=== PATIENT | male | born 1950 | race Caucasian/White ===

== ENCOUNTER 2023-08-05 09:52 | Inpatient (IN) | payer OTHER, MEDICAID ==
[~2023-08-05] VITALS: Ht 177.8 cm; Wt 129.1 kg
[2023-08-05 10:16] LABS: EOSINOPHILS % 1.7 % (0.0-5.0); HEMATOCRIT. 44.5 % (42.0-52.0); HEMOGLOBIN. 14.6 g/dL (14.0-18.0); LYMPHOCYTES % 15.4 % (20.0-50.0); MEAN CORPUSCULAR HEMOGLOBIN 31.3 pg (28.0-32.0); MEAN CORPUSCULAR HGB CONC 32.8 g/dL (31.0-37.0); MEAN CORPUSCULAR VOLUME 95.4 fL (80.0-94.0); MEAN PLATELET VOLUME 9.8 fl (7.4-10.4); MONOCYTES % 8.3 % (2.0-8.0); NEUTROPHILS % 73.6 % (40.0-76.0); PLATELET 187 x1000/uL (130-400); RED BLOOD CELL COUNT 4.66 mill/uL (4.7-6.1); RED CELL DISTRIBUTION WIDTH 15.6 % (11.6-14.6); WHITE BLOOD COUNT 4.6 x1000/uL (4.5-11.0)
[2023-08-05 10:36] LABS: CHLORIDE 106 mEq/L (98-107); POTASSIUM 4.1 mEq/L (3.5-5.1); SODIUM 139 mEq/L (136-145)
[2023-08-05 10:47] LABS: ALANINE AMINOTRANSFERASE 28 IU/L (13-61); ALBUMIN 2.9 g/dL (3.4-5.0); ASPARTATE AMINOTRANSFERASE 19 IU/L (15-37); BILIRUBIN TOTAL 0.5 mg/dL (0.1-1.0); CALCIUM 8.4 mg/dL (8.5-10.1); CARBON DIOXIDE 26 mEq/L (21-32); GLUCOSE 190 mg/dL (70-105); NT PRO B-TYPE NATRIURETIC PEP 259 pg/mL (5-125); PROTEIN TOTAL 6.3 g/dL (6.0-8.3); TROPONIN I HIGH SENSITIVITY 24 ng/L (<78); UREA NITROGEN BLOOD 25 mg/dL (7-21)
[2023-08-05] MEDS: LOSARTAN 25 MG TABLET PO SCH (11:15)
[2023-08-05] MEDS ORDERED: ONDANSETRON HCL 4MG/2ML INJ IV PRN (13:30)
[2023-08-05] MEDS ORDERED: DEXTROSE 50% WATER 50ML SYRINGE IV PRN (13:30)
[2023-08-05] MEDS ORDERED: IPRATROPIUM/ALBUTEROL 0.5-3(2.5)MG/3ML NEB HHN PRN (13:30)
[2023-08-05] MEDS ORDERED: ACETAMINOPHEN 325MG TABLET PO PRN (13:30)
[2023-08-05 14:00] LABS: PHOSPHORUS 3.7 mg/dL (2.5-4.9); T4 FREE 1.07 ng/dL (0.76-1.46); THYROID STIMULATING HORMONE 2.2 uIU/mL (0.36-3.74)
[2023-08-05] MEDS ORDERED: TAMSULOSIN HCL 0.4MG SR CAPSULE PO SCH (14:15)
[2023-08-05] MEDS: TAMSULOSIN HCL 0.4MG SR CAPSULE PO SCH (14:45)
[2023-08-05] MEDS ORDERED: MAGNESIUM 1 G PREMIX 100 ML IV NR (15:00)
[2023-08-05] MEDS: BLOOD SUGAR DIAGNOSTIC STRIP TEST SCH ×2 (17:27→21:53)
[2023-08-05 17:52] LABS: CLARITY URINE CLEAR (CLEAR); COLOR URINE YELLOW (YELLOW); GLUCOSE URINE NEGATIVE (NEGATIVE); KETONES URINE NEGATIVE (NEGATIVE); LEUKOCYTE ESTERASE URINE NEGATIVE (NEGATIVE); NITRITE URINE NEGATIVE (NEGATIVE); OCCULT BLOOD URINE NEGATIVE (NEGATIVE); PH URINE 7.5 (4.5-8.0); PROTEIN URINE 3+ (NEGATIVE)
[2023-08-05 17:53] LABS: BACTERIA URINE NONE SEEN; RBC URINE NONE SEEN /hpf (0-2); SQUAMOUS EPITHELIAL CELL URINE NONE SEEN /lpf (RARE/1+); WBC URINE NONE SEEN /hpf (0-2); YEAST URINE NONE SEEN
[2023-08-05] MEDS: INSULIN LISPRO 100 UNITS/ML SUBCUT SCH ×2 (18:20→21:00)
[2023-08-05 21:00] VITALS: BP 188/84; PULSE 71; RESP 16; TEMP 97.8
[2023-08-05] MEDS ORDERED: AMLODIPINE 5MG TABLET PO SCH (21:00)
[2023-08-05 22:00] VITALS: BP 182/83; PULSE 72; RESP 17
[2023-08-05] MEDS ORDERED: BRIN15DR4 (22:47)
[2023-08-05] MEDS ORDERED: BRIM5DRO6 EACHEYE (22:48)
[2023-08-05] MEDS ORDERED: BIMA2.5D4 EACHEYE (22:49)
[2023-08-05] MEDS ORDERED: AMLO1TAB15 PO (22:55)
[2023-08-05] MEDS ORDERED: AMLO1TAB15 MT (22:55)
[2023-08-05] MEDS ORDERED: GLIM4TAB36 MT (22:56)
[2023-08-05 23:00] VITALS: BP 163/79; PULSE 62; RESP 15
[2023-08-05] MEDS ORDERED: PRAV80TA21 MT (23:00)
[2023-08-05] MEDS ORDERED: TAMS-11 MT (23:00)
[2023-08-05] MEDS ORDERED: OXYB5TAB17 PO (23:00)
[2023-08-05] MEDS ORDERED: DEXL60CA3 MT (23:00)
[2023-08-05] MEDS ORDERED: PIOG1TAB23 MT (23:01)
[2023-08-05] MEDS ORDERED: HYDRALAZINE 20MG/ML VIAL ONE (23:19)
[2023-08-05] MEDS: ATORVASTATIN CALCIUM 40MG TABLET PO SCH (23:21)
[2023-08-05] MEDS: HYDRALAZINE 20MG/ML VIAL IV PRN (23:22)
[2023-08-05 23:46] VITALS: BP 163/89; PULSE 71; RESP 17; TEMP 97.8
[2023-08-06] VITALS (46 sets, daily range): BP systolic 114–176; BP diastolic 57–103; PULSE 51–76; RESP 13–21; TEMP 97.9–98.6
[2023-08-06 05:45] LABS: CHLORIDE 106 mEq/L (98-107); INDEX HEMOLYSI 1 (1-3); INDEX ICTERIC 1 (1-4); INDEX LIPEMIC 1 (1-3); POTASSIUM 3.3 mEq/L (3.5-5.1); SODIUM 140 mEq/L (136-145)
[2023-08-06 05:47] LABS: BASOPHILS % 0.8 % (0.0-2.0); EOSINOPHILS % 1.5 % (0.0-5.0); HEMATOCRIT. 43.1 % (42.0-52.0); HEMOGLOBIN. 14.3 g/dL (14.0-18.0); LYMPHOCYTES % 14.4 % (20.0-50.0); MEAN CORPUSCULAR HEMOGLOBIN 31.2 pg (28.0-32.0); MEAN CORPUSCULAR HGB CONC 33.1 g/dL (31.0-37.0); MEAN CORPUSCULAR VOLUME 94.1 fL (80.0-94.0); MEAN PLATELET VOLUME 10.1 fl (7.4-10.4); NEUTROPHILS % 73.3 % (40.0-76.0); PLATELET 177 x1000/uL (130-400); RED BLOOD CELL COUNT 4.58 mill/uL (4.7-6.1); RED CELL DISTRIBUTION WIDTH 15.5 % (11.6-14.6); WHITE BLOOD COUNT 4.7 x1000/uL (4.5-11.0)
[2023-08-06 05:53] LABS: CARBON DIOXIDE 29 mEq/L (21-32); CREATININE 0.8 mg/dL (0.6-1.3); GLUCOSE 134 mg/dL (70-105); UREA NITROGEN BLOOD 17 mg/dL (7-21)
[2023-08-06] MEDS: BLOOD SUGAR DIAGNOSTIC STRIP TEST SCH ×4 (07:50→21:00)
[2023-08-06] MEDS ORDERED: POTASSIUM CHLORIDE INJ 40 MEQ in DEXT 5% WATER 500 ML IV NR (08:00)
[2023-08-06] MEDS: INSULIN LISPRO 100 UNITS/ML SUBCUT SCH ×4 (08:20→20:57)
[2023-08-06] MEDS: TAMSULOSIN HCL 0.4MG SR CAPSULE PO SCH (09:58)
[2023-08-06] MEDS: LOSARTAN 25 MG TABLET PO SCH (09:58)
[2023-08-06] MEDS: PANTOPRAZOLE 40MG DR TABLET PO SCH (09:58)
[2023-08-06] MEDS ORDERED: POTASSIUM CHLORIDE 20MEQ/PACKET PO ONE (10:00)
[2023-08-06] MEDS ORDERED: ENOXAPARIN 30MG/0.3ML SYR SUBCUT SCH (18:00)
[2023-08-06] MEDS: ATORVASTATIN CALCIUM 40MG TABLET PO SCH (20:57)
[2023-08-06] MEDS: HYDRALAZINE 20MG/ML VIAL IV PRN (21:40)
[2023-08-07] VITALS (40 sets, daily range): BP systolic 106–182; BP diastolic 41–102; PULSE 55–94; RESP 13–24; TEMP 97.6–98.1
[2023-08-07] MEDS ORDERED: GENTAMICIN SULF 40MG/ML 2ML VIAL ONE (07:41)
[2023-08-07] MEDS ORDERED: LIDOCAINE HCL 1% 20ML VIAL (Pyxis) INJ ONE ×2 (07:41→10:24)
[2023-08-07] MEDS ORDERED: CEFAZOLIN SODIUM 1000MG/VIAL ONE ×2 (07:42)
[2023-08-07] MEDS ORDERED: IODIXANOL 320MG/ML 100 ML BOTTLE IV ONE ×2 (07:45→10:58)
[2023-08-07] MEDS: BLOOD SUGAR DIAGNOSTIC STRIP TEST SCH ×4 (07:50→20:28)
[2023-08-07] MEDS: PANTOPRAZOLE 40MG DR TABLET PO SCH (07:50)
[2023-08-07] MEDS: INSULIN LISPRO 100 UNITS/ML SUBCUT SCH ×4 (08:20→20:33)
[2023-08-07] MEDS: LOSARTAN 25 MG TABLET PO SCH (08:22)
[2023-08-07] MEDS: TAMSULOSIN HCL 0.4MG SR CAPSULE PO SCH (08:22)
[2023-08-07] MEDS ORDERED: ETOMIDATE 2MG/ML 10ML VIAL IV ONE (08:23)
[2023-08-07] MEDS ORDERED: GENTAMICIN 80MG in SODIUM CHLORIDE IRRIG SOLN 500ML IR NR (08:30)
[2023-08-07] MEDS ORDERED: ROCURONIUM BROMIDE 10MG/ML VIAL 5ML IV ONE (09:12)
[2023-08-07] MEDS ORDERED: PROPOFOL 10MG/ML 100ML 100 ML IV ONE (10:24)
[2023-08-07] MEDS ORDERED: NALOXONE HCL 0.4MG/ML VIAL IV PRN (12:30)
[2023-08-07] MEDS ORDERED: HYDROCODONE/ACETAMINOPHEN 5/325MG TABLET PO PRN (12:30)
[2023-08-07] MEDS: ASPIRIN 81MG EC TABLET PO SCH (15:46)
[2023-08-07 16:30] LABS: HEMATOCRIT. 48.2 % (42.0-52.0); HEMOGLOBIN. 15.9 g/dL (14.0-18.0); MEAN CORPUSCULAR HEMOGLOBIN 31.6 pg (28.0-32.0); MEAN CORPUSCULAR HGB CONC 33.1 g/dL (31.0-37.0); MEAN CORPUSCULAR VOLUME 95.5 fL (80.0-94.0); MEAN PLATELET VOLUME 10.5 fl (7.4-10.4); PLATELET 181 x1000/uL (130-400); RED BLOOD CELL COUNT 5.04 mill/uL (4.7-6.1); RED CELL DISTRIBUTION WIDTH 16.2 % (11.6-14.6)
[2023-08-07 16:34] LABS: DIFFERENTIAL COMMENT 1
[2023-08-07 16:56] LABS: POTASSIUM 3.8 mEq/L (3.5-5.1)
[2023-08-07 17:03] LABS: CALCIUM 8.6 mg/dL (8.5-10.1); CREATININE 1.2 mg/dL (0.6-1.3)
[2023-08-07 17:07] LABS: PLATELET ESTIMATE NORMAL
[2023-08-07] MEDS: ATORVASTATIN CALCIUM 40MG TABLET PO SCH (20:32)
[2023-08-07 22:15] LABS: BG BASE EXCESS -2.8 mmol/L (-2.0-2.0); BG CARBOXYHEMOGLOBIN 0.4 % (0.5-1.5); BG DEOXYHEMOGLOBIN 4.8 % (0.0-5.0); BG FRACTION INSPIRED OXYGEN 60; BG HCO3 ACT 20.9 mmol/L (22.0-26.0); BG METHEMOGLOBIN 0.3 % (0.0-1.5); BG OXYGEN SATURATION 95.2 % (92.0-98.5); BG OXYHEMOGLOBIN 94.5 % (94.0-97.0); BG PCO2 33.8 mmHg (35.0-45.0); BG PH 7.409 (7.350-7.450); BG PO2 73.9 mmHg (75.0-100.0); BG SAMPLE SITE RIGHT RADIAL; BG VENT MODE MASK - SIMPLE
[2023-08-08] VITALS (53 sets, daily range): BP systolic 102–179; BP diastolic 55–147; PULSE 76–92; RESP 8–27; TEMP 97.7–98.4
[2023-08-08] MEDS: HYDRALAZINE 20MG/ML VIAL IV PRN ×3 (04:35→19:52)
[2023-08-08 05:55] LABS: HEMATOCRIT. 44.5 % (42.0-52.0); HEMOGLOBIN. 14.8 g/dL (14.0-18.0); MEAN CORPUSCULAR HEMOGLOBIN 31.7 pg (28.0-32.0); MEAN CORPUSCULAR HGB CONC 33.2 g/dL (31.0-37.0); MEAN CORPUSCULAR VOLUME 95.3 fL (80.0-94.0); MEAN PLATELET VOLUME 10.5 fl (7.4-10.4); PLATELET 185 x1000/uL (130-400); RED BLOOD CELL COUNT 4.67 mill/uL (4.7-6.1); RED CELL DISTRIBUTION WIDTH 16.1 % (11.6-14.6); WHITE BLOOD COUNT 8.9 x1000/uL (4.5-11.0)
[2023-08-08 06:06] LABS: POTASSIUM 4.1 mEq/L (3.5-5.1)
[2023-08-08 06:11] LABS: CALCIUM 8.8 mg/dL (8.5-10.1); CREATININE 1.5 mg/dL (0.6-1.3)
[2023-08-08 06:16] LABS: DIFFERENTIAL COMMENT 1
[2023-08-08] MEDS: TAMSULOSIN HCL 0.4MG SR CAPSULE PO SCH (08:07)
[2023-08-08] MEDS: PANTOPRAZOLE 40MG DR TABLET PO SCH (08:07)
[2023-08-08] MEDS: ASPIRIN 81MG EC TABLET PO SCH (08:10)
[2023-08-08] MEDS: LOSARTAN 25 MG TABLET PO SCH (08:10)
[2023-08-08] MEDS: BLOOD SUGAR DIAGNOSTIC STRIP TEST SCH ×4 (08:12→21:00)
[2023-08-08] MEDS: INSULIN LISPRO 100 UNITS/ML SUBCUT SCH ×4 (08:12→21:38)
[2023-08-08] MEDS: HYDRALAZINE HCL 50MG TABLET PO SCH ×3 (09:07→21:38)
[2023-08-08 12:46] LABS: BG BASE EXCESS -2.4 mmol/L (-2.0-2.0); BG CARBOXYHEMOGLOBIN 0.4 % (0.5-1.5); BG DEOXYHEMOGLOBIN 8.5 % (0.0-5.0); BG FRACTION INSPIRED OXYGEN 21; BG HCO3 ACT 21.2 mmol/L (22.0-26.0); BG METHEMOGLOBIN 0.1 % (0.0-1.5); BG OXYGEN SATURATION 91.5 % (92.0-98.5); BG PCO2 33.5 mmHg (35.0-45.0); BG PO2 60.9 mmHg (75.0-100.0); BG SAMPLE SITE RIGHT RADIAL; BG TOTAL HEMOGLOBIN 14.9 g/dL (12.0-18.0); BG VENT MODE ROOM AIR
[2023-08-08 13:30] LABS: PLATELET ESTIMATE NORMAL
[2023-08-08] MEDS: ATORVASTATIN CALCIUM 40MG TABLET PO SCH (21:38)
[2023-08-09] VITALS (44 sets, daily range): BP systolic 129–168; BP diastolic 54–112; PULSE 73–88; RESP 12–23; TEMP 98.1–98.8; O2SAT 92
[2023-08-09] MEDS: HYDRALAZINE HCL 50MG TABLET PO SCH ×2 (05:17→13:03)
[2023-08-09 06:10] LABS: BASOPHILS % 0.3 % (0.0-2.0); EOSINOPHILS % 0.3 % (0.0-5.0); HEMATOCRIT. 42.4 % (42.0-52.0); HEMOGLOBIN. 14.1 g/dL (14.0-18.0); LYMPHOCYTES % 10.9 % (20.0-50.0); MEAN CORPUSCULAR HEMOGLOBIN 31.5 pg (28.0-32.0); MEAN CORPUSCULAR HGB CONC 33.2 g/dL (31.0-37.0); MEAN CORPUSCULAR VOLUME 94.8 fL (80.0-94.0); MEAN PLATELET VOLUME 10.4 fl (7.4-10.4); MONOCYTES % 10.7 % (2.0-8.0); NEUTROPHILS % 77.8 % (40.0-76.0); PLATELET 176 x1000/uL (130-400); RED BLOOD CELL COUNT 4.47 mill/uL (4.7-6.1); RED CELL DISTRIBUTION WIDTH 16.2 % (11.6-14.6); WHITE BLOOD COUNT 7.2 x1000/uL (4.5-11.0)
[2023-08-09 06:24] LABS: POTASSIUM 3.9 mEq/L (3.5-5.1)
[2023-08-09 06:35] LABS: CALCIUM 8.6 mg/dL (8.5-10.1); CREATININE 1.7 mg/dL (0.6-1.3)
[2023-08-09] MEDS: BLOOD SUGAR DIAGNOSTIC STRIP TEST SCH ×4 (08:01→20:17)
[2023-08-09] MEDS: LOSARTAN 25 MG TABLET PO SCH (08:02)
[2023-08-09] MEDS: TAMSULOSIN HCL 0.4MG SR CAPSULE PO SCH (08:02)
[2023-08-09] MEDS: ASPIRIN 81MG EC TABLET PO SCH (08:02)
[2023-08-09] MEDS: PANTOPRAZOLE 40MG DR TABLET PO SCH (08:02)
[2023-08-09] MEDS: INSULIN LISPRO 100 UNITS/ML SUBCUT SCH ×4 (08:03→20:17)
[2023-08-09] MEDS ORDERED: LACTULOSE 20G/30ML UDC PO NR (10:30)
[2023-08-09 10:38] LABS: BG BASE EXCESS -0.9 mmol/L (-2.0-2.0); BG CARBOXYHEMOGLOBIN 0.6 % (0.5-1.5); BG DEOXYHEMOGLOBIN 8.2 % (0.0-5.0); BG FRACTION INSPIRED OXYGEN 21; BG HCO3 ACT 23.2 mmol/L (22.0-26.0); BG METHEMOGLOBIN 0.3 % (0.0-1.5); BG OXYGEN SATURATION 91.7 % (92.0-98.5); BG OXYHEMOGLOBIN 90.9 % (94.0-97.0); BG PH 7.416 (7.350-7.450); BG SAMPLE SITE RIGHT RADIAL; BG TOTAL HEMOGLOBIN 14.3 g/dL (12.0-18.0); BG VENT MODE ROOM AIR
[2023-08-09] MEDS: DOCUSATE SODIUM 100MG CAPSULE PO SCH ×2 (11:36→17:44)
[2023-08-09] MEDS ORDERED: INSULIN GLARGINE 100 UNITS/ML SUBCUT SCH (12:52)
[2023-08-09] MEDS: ATORVASTATIN CALCIUM 40MG TABLET PO SCH (20:16)
== END 2023-08-09 22:00 | disposition home or self-care (01) | DRG 242 ==
LOC: ER 10:52 → CVICU 13:02 → EDBEDREQTM 13:06 → EDBEDREQ 13:06
PROVIDERS: ADMIT Internal Medicine; ATTEND Internal Medicine
PROC: B517YZZ Fluoroscopy of Left Subclavian Vein using Other Contrast (ICD-10-PCS; principal; 2023-08-07)
PROC: 0JH606Z Insertion of Pacemaker, Dual Chamber into Chest Subcutaneous Tissue and Fascia, Open Approach (ICD-10-PCS; 2023-08-07)
PROC: 02H63JZ Insertion of Pacemaker Lead into Right Atrium, Percutaneous Approach (ICD-10-PCS; 2023-08-07)
PROC: 02HK3JZ Insertion of Pacemaker Lead into Right Ventricle, Percutaneous Approach (ICD-10-PCS; 2023-08-07)
DX: I44.2 Atrioventricular block, complete (principal); J96.01 Acute respiratory failure with hypoxia; E66.2 Morbid (severe) obesity with alveolar hypoventilation; I45.3 Trifascicular block; E11.9 Type 2 diabetes mellitus without complications; E78.00 Pure hypercholesterolemia, unspecified; I25.10 Atherosclerotic heart disease of native coronary artery without angina pectoris; N40.0 Benign prostatic hyperplasia without lower urinary tract symptoms; I10 Essential (primary) hypertension; I45.10 Unspecified right bundle-branch block; D64.9 Anemia, unspecified; Z68.34 Body mass index [BMI] 34.0-34.9, adult; Z79.84 Long term (current) use of oral hypoglycemic drugs; Z79.899 Other long term (current) drug therapy; Z79.82 Long term (current) use of aspirin; Z98.61 Coronary angioplasty status
CPT/HCPCS: 33208; 36415; 36600; 71045; 75820; 80048; 80053; 80061; 81003; 82375; 82805; 82962; 83036; 83735; 83880; 84100; 84439; 84443; 84484; 85025; 93005; 93306; 93970; 97162; 97166; 97535; 99291; A4565; C1769; C1785; C1893; C1898; J0360; J0690; J1580; J1650; J1815; J2704; J3475; J3480; J3490; J7060; Q9967